=== PATIENT | female | born 1975 | race Two or more races ===

== ENCOUNTER 2017-11-22 13:14 | Emergency (ER) | payer MEDICAID ==
[~2017-11-22] VITALS: Ht 162.6 cm; Wt 87.5 kg
[2017-11-22 13:36] VITALS: BP 138/90
== END 2017-11-22 16:59 | disposition home or self-care (01) ==
LOC: ER 13:14
DX: J20.9 Acute bronchitis, unspecified (principal); J02.9 Acute pharyngitis, unspecified
CPT/HCPCS: 71046